=== PATIENT | male | born 1995 | race Caucasian/White ===

== ENCOUNTER 2017-03-13 18:19 | Emergency (ER) | payer OTHER ==
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
[2017-03-13] MEDS ORDERED: NO MEDICATIONS (18:26)
== END 2017-03-13 19:50 | disposition home or self-care (01) ==
LOC: SED 18:19
DX: S62.315A Displaced fracture of base of fourth metacarpal bone, left hand, initial encounter for closed fracture (principal); W22.8XXA Striking against or struck by other objects, initial encounter
CPT/HCPCS: 29125; 73130; 99283